=== PATIENT | female | born 1980 | race Caucasian/White ===

== ENCOUNTER 2017-08-16 03:26 | Emergency (ER) | payer MEDICAID ==
[~2017-08-16] VITALS: Ht 157.5 cm; Wt 69.8 kg
[2017-08-16 03:37] VITALS: Ht 157.5 cm; Wt 69.8 kg
[2017-08-16 04:43] LABS: UA SPECIFIC GRAVITY 1.015 (1.005-1.035); microscopic required? YES; urine erythrocyte 3+ (NEGATIVE)
[2017-08-16 05:25] VITALS: BP 125/75
== END 2017-08-16 05:28 | disposition home or self-care (01) ==
LOC: ED 03:26
PROVIDERS: Emergency Medicine
DX: N10 Acute pyelonephritis (principal)
CPT/HCPCS: J0696; J7030

== ENCOUNTER 2017-12-06 16:52 | Emergency (ER) | payer OTHER ==
[~2017-12-06] VITALS: Ht 149.9 cm; Wt 72.7 kg
[2017-12-06 17:14] VITALS: Ht 149.9 cm; Wt 72.7 kg
[2017-12-06 18:34] VITALS: BP 116/67
== END 2017-12-06 18:34 | disposition home or self-care (01) ==
LOC: ED 16:52
DX: K52.9 Noninfective gastroenteritis and colitis, unspecified (principal)
CPT/HCPCS: J2405; J3490; J7030